=== PATIENT | female | born 1995 | race Hispanic/Latino ===

== ENCOUNTER 2024-08-29 22:57 | Emergency (ER) | payer OTHER ==
[2024-08-29] MEDS ORDERED: Sodium Chloride 0.9% 10 ML Syringe FLUSH PRN (23:16)
[2024-08-29 23:24] LABS: BASOPHILS PERCENT AUTO 0.7 % (0.0-1.0); EOSINOPHILS ABSOLUTE AUTO 0.2 K/mm3 (0.0-0.4); EOSINOPHILS PERCENT AUTO 3.8 % (0.0-6.0); HEMATOCRIT 41.4 % (37.0-47.0); HEMOGLOBIN 14.1 gm/dl (12.0-16.0); IMMATURE GRAN ABSOLUTE AUTO 0.01 K/mm3 (0.00-0.05); IMMATURE GRAN PERCENT AUTO 0.2 % (0.0-0.4); LYMPHOCYTES ABSOLUTE AUTO 1.2 K/mm3 (1.0-4.8); LYMPHOCYTES PERCENT AUTO 27.2 % (24.0-44.0); MEAN CORPUSCULAR HEMOGLOBIN 30.5 pg (28.0-32.0); MEAN CORPUSCULAR HGB CONC 34.1 g/dl (32.0-36.0); MEAN CORPUSCULAR VOLUME 89.6 fl (83.0-99.0); MEAN PLATELET VOLUME 9.1 fl (9.4-12.3); MONOCYTES ABSOLUTE AUTO 0.6 K/mm3 (0.0-0.8); MONOCYTES PERCENT AUTO 13.3 % (0.0-8.0); NEUTROPHILS ABSOLUTE AUTO 2.5 K/mm3 (1.8-7.7); NEUTROPHILS PERCENT AUTO 54.8 % (41.0-71.0); PLATELET COUNT,PLT 170 K/mm3 (150-400); RED BLOOD CELL COUNT 4.62 M/mm3 (4.10-5.30); WHITE BLOOD CELL COUNT,WBC 4.52 K/mm3 (3.9-11.3)
[2024-08-29] MEDS: Albuterol/Ipratropium 3.0-0.5 MG/3 ML Neb Soln NEB SCH (23:34)
[2024-08-29] MEDS: methylPREDNISolone Sodium Succinate 125 MG/2 ML SDV IVPUSH ONE (23:37)
[2024-08-29 23:40] LABS: A/G RATIO 1.2 (1-2); ALBUMIN 4.2 g/dl (3.4-5.0); ANION GAP 13.8 (5-15); BILIRUBIN TOTAL 0.3 mg/dL (0.2-1.0); BUN/CREATININE RATIO 16.4 (14-18); CALCIUM 9.3 mg/dL (8.5-10.1); CREATININE 1.1 mg/dL (0.55-1.02); EST CRCL DRUG DOSING (CG) 67.29 mL/min; POTASSIUM,K 3.8 mEq/L (3.5-5.1); PROTEIN TOTAL,TP 7.6 g/dl (6.4-8.2)
[2024-08-30 00:07] LABS: CORONAVIRUS COVID-19 NAA NEGATIVE (NEGATIVE); INFLUENZA A NAA NEGATIVE (NEGATIVE); RESPIRATORY SYNCYTIAL VIR NAA POSITIVE (NEGATIVE)
== END 2024-08-30 01:49 | disposition home or self-care (01) ==
LOC: JD.ED 22:57
DX: J45.901 Unspecified asthma with (acute) exacerbation (principal); B33.8 Other specified viral diseases; F17.210 Nicotine dependence, cigarettes, uncomplicated; Z79.51 Long term (current) use of inhaled steroids; Z79.52 Long term (current) use of systemic steroids
CPT/HCPCS: 0241U; 36415; 71045; 80053; 84703; 85025; 94640; 96374; 99285; J2919; 99284; J7620-GY